=== PATIENT | male | born 1980 ===

== ENCOUNTER 2020-01-20 18:48 | Emergency (ER) | payer OTHER, SELFPAY ==
[2020-01-20 18:59] VITALS: BP 132/80; PULSE 63; RESP 16; TEMP 36.6; O2SAT 97
--- NOTE | 2020-01-20 19:06 | ED.UPPEXIN ---
HPI - Extremity Injury (Upper) General Chief Complaint: Extremity Injury, Upper Stated Complaint: Left middle finger injury Time Seen by Provider: 01/20/20 19:06 Source: patient and family History of Present Illness HPI narrative: Patient presents with a laceration to his left middle finger. Patient has a flap that he cut his finger at work 11 hours ago today. No numbness or tingling full range of motion of finger. Patient unsure of his last tetanus shot. Patient cut his finger on a knife at work. complaint: injury to: left Other Extremity Injury: Left: fingers (Middle finger) Relieving factors: none Context: fall Related Data Home Medications Medication Instructions Recorded Confirmed fexofenadine [Kirti Allergy] 180 mg PO DAILY 01/20/20 01/20/20 venlafaxine 75 mg PO BID 01/20/20 01/20/20 Allergies Allergy/AdvReac Type Severity Reaction Status Date / Time oxycodone AdvReac Unknown constipatio Verified 01/20/20 19:08 n Review of Systems Review of Systems: Narrative: CONSTITUTIONAL: Denies fever, chills, or sweats. EYES: Denies visual changes, redness, or discharge. ENT: Denies rhinorrhea, congestion, sore throat, or otalgia. CARDIOVASCULAR: Denies chest pain, palpitations, or edema. RESPIRATORY: Denies cough or dyspnea. GASTROINTESTINAL: Denies abdominal pain, nausea, vomiting, or diarrhea. GENITOURINARY: Denies dysuria or hematuria. SKIN: Denies rash or itching. V-shaped laceration to left middle finger MUSCULOSKELETAL: Denies back pain, joint pain, or myalgia. NEUROLOGIC: Denies headache, numbness, or weakness. PSYCHIATRIC: Denies anxiety or depression. PMFSH Comments CONSTITUTIONAL: Denies fever, chills, or sweats. EYES: Denies visual changes, redness, or discharge. ENT: Denies rhinorrhea, congestion, sore throat, or otalgia. CARDIOVASCULAR: Denies chest pain, palpitations, or edema. RESPIRATORY: Denies cough or dyspnea. GASTROINTESTINAL: Denies abdominal pain, nausea, vomiting, or diarrhea. GENITOURINARY: Denies dysuria or hematuria. SKIN: Denies rash or itching. MUSCULOSKELETAL: Denies back pain, joint pain, or myalgia. NEUROLOGIC: Denies headache, numbness, or weakness. PSYCHIATRIC: Denies anxiety or depression. Exam Narrative: Exam Narrative: GENERAL: Well-appearing, well-nourished, and in no acute distress. HEAD: Normocephalic, atraumatic. EYES: PERRLA and EOMI. ENT: Nares clear, no rhinorrhea or epistaxis. Mucous membranes moist. NECK: Supple. CHEST: Clear to auscultation. No respiratory distress. HEART: Regular rate and rhythm. No murmur heard. Normal peripheral pulses. ABDOMEN: Soft, nontender, nondistended, normal active bowel sounds. EXTREMITIES: Normal range of motion. No edema. HAND EXAM - Skin intact, V-shaped laceration to left middle finger, no swelling, no erythema, normal digit cascade with flexion of fingers, median nerve, ulnar nerve, radial nerve is intact. Normal sensation of each side of each finger, can perform `ok? sign, `cross over finger test of index and middle fingers? and `thumbs up? sign, normal thumb opposition, no scissoring. good capillary refill and radial pulse. normal flexion and extension of fingers and wrist. normal supination at wrist. Normal forearm and elbow exam. SKIN: Warm, dry, no rash. NEURO: No focal deficits. Alert and oriented x3. [place] Coma Scale Eye Opening: Spontaneous 4 [place] Coma Scale Motor: Obeys Commands 6 [place] Coma Scale Verbal: Oriented 5 [place] Coma Scale Total 15 Extrem: Hand/finger images: 1. V SHAPED FLAP NO NEURO DEFICIT FULL ROM Course Vital Signs Vital signs: Vital Signs Temperature 36.6 C 01/20/20 18:59 Pulse Rate 63 01/20/20 18:59 Respiratory Rate 16 01/20/20 18:59 Blood Pressure 132/80 01/20/20 18:59 Pulse Oximetry 97 01/20/20 18:59 Temperature 36.6 C 01/20/20 18:59 Pulse Rate 63 01/20/20 18:59 Respiratory Rate 16 01/20/20 18:59 Blood Pressure 132/80 01/20/20 18:59 Pulse O
[2020-01-20] MEDS: TETANUS,DIPHTHERIA,AC PERTUSSIS ADULT 0.5 ML (ADACEL) IM (19:24)
== END 2020-01-20 19:45 | disposition home or self-care (01) ==
PROVIDERS: Emergency Provider Nurse Practitioner Family; PCP Internal Medicine
DX: S61.213A Laceration without foreign body of left middle finger without damage to nail, initial encounter (principal); W26.0XXA Contact with knife, initial encounter; Y99.0 Civilian activity done for income or pay; Z23 Encounter for immunization
CPT/HCPCS: 12001; 90471; 90715; 99202; G0463